=== PATIENT | male | born 1995 | race American Indian/Alaskan Native ===

== ENCOUNTER 2020-10-28 10:13 | Emergency (ER) | payer OTHER ==
[2020-10-28] MEDS ORDERED: FLU VACC QS2020-21(6MOS UP)/PF 60 MCG/0.5 ML SYRINGE IM ONE (11:00)
--- NOTE | 2020-10-28 11:21 | EDM.PDOCBH ---
ED HPI GENERAL MEDICAL PROBLEM - General Chief Complaint: Behavioral/Psych Stated Complaint: [facility] Time Seen by Provider: 10/28/20 11:08 Source of Information: Reports: Patient, RN Notes Reviewed History Limitations: Reports: No Limitations - History of Present Illness INITIAL COMMENTS - FREE TEXT/NARRATIVE: Patient is a 24-year-old male who was brought in to the ED via the [facility] for the evaluation of his anxiety. The patient notes this morning he was experiencing generalized anxiety, both breathing fast, and then developed some numbness to his hands, face and states it was kind of hard to talk after that time. He notes that while being in the ambulance, this helped. Calm him down quite a bit due to prolonged wait times in the ER, he states that he feels even better sitting on the ER cot now, and all of the numbness and tingling seems to have went away. He is not ever experienced anxiety, but he believes this to be a panic attack. He was drinking last night pretty heavily, he denies any sort of drug use that he would have done. Patient denies any other sick- like symptoms, fever/chills, cough/shortness of breath, nausea/vomiting/di arrhea. He does not have a regular care provider. - Related Data Allergies Allergy/AdvReac Type Severity Reaction Status Date / Time No Known Allergies Allergy Verified 10/28/20 10:27 Home Meds: Home Meds LORazepam [Ativan] 1 mg PO TID PRN #12 tab 10/28/20 [Rx] Past Medical History - Infectious Disease History Infectious Disease History: Reports: Novel Coronavirus (Jul 2020) - Past Surgical History Musculoskeletal Surgical History: Reports: Other (See Below) Other Musculoskeletal Surgeries/Procedures:: surgery to left arm Social & Family History - Family History Family Medical History: No Pertinent Family History - Tobacco Use Tobacco Use Status *Q: Never Tobacco User Second Hand Smoke Exposure: No - Caffeine Use Caffeine Use: Reports: Coffee, Energy Drinks, Soda - Alcohol Use Alcohol Use History: Yes Days Per Week of Alcohol Use: 2 Number of Drinks Per Day: 10 Total Drinks Per Week: 20 - Recreational Drug Use Recreational Drug Use: No ED ROS GENERAL - Review of Systems Review Of Systems: Comprehensive ROS is negative, except as noted in HPI. ED EXAM, BEHAVIORAL HEALTH - Physical Exam Exam: See Below Exam Limited By: No Limitations General Appearance: Alert, WD/WN, No Apparent Distress Respiratory/Chest: No Respiratory Distress, Lungs Clear, Normal Breath Sounds, No Accessory Muscle Use, Chest Non-Tender Cardiovascular: Normal Peripheral Pulses, Regular Rate, Rhythm, No Murmur Extremities: Normal Inspection, Normal Range of Motion, Normal Capillary Refill Neurological: Alert, Normal Mood/Affect, Normal Cognition, Normal Reflexes, No Motor/Sensory Deficits, Oriented x 3 Psychiatric: Alert, Normal Affect, Normal Cognition, Normal Mood, Oriented Skin Exam: Warm, Dry, Intact, Normal color, No rash COURSE, BEHAVIORAL HEALTH COMP - Course Vital Signs: Last Vital Signs Temp 97.9 F 10/28/20 10:20 Pulse 103 H 10/28/20 10:20 Resp 24 H 10/28/20 10:20 BP 152/96 H 10/28/20 10:20 Pulse Ox 99 10/28/20 10:20 Orders, Labs, Meds: Active Orders 24 hr Category Date Time Status Influenza Vaccine Charge [RC] .DISCHARGE Care 10/28/20 10:31 Active Laboratory Tests 10/28/20 Range/Units 11:30 Sodium 141 (136-145) mEq/L Potassium 3.4 L (3.5-5.1) mEq/L Chloride 103 (98-107) mEq/L Carbon Dioxide 27 (21-32) mEq/L Anion Gap 14.4 (5-15) BUN 5 L (7-18) mg/dL Creatinine 1.1 (0.7-1.3) mg/dL Est Cr Clr Drug Dosing 101.77 mL/min Estimated GFR (MDRD) > 60 (>60) mL/min BUN/Creatinine Ratio 4.5 L (14-18) Glucose 100 (74-106) mg/dL Calcium 8.2 L (8.5-10.1) mg/dL Total Bilirubin 0.7 (0.2-1.0) mg/dL AST 47 H (15-37) U/L ALT 91 H (16-63) U/L Alkaline Phosphatase 140 H (46-116) U/L Total Protein 7.4 (6.4-8.2) g/dl Albumin 3.8 (3.4-5.0) g/dl Globulin 3.6 gm/dL Albumin/Globulin Ratio 1.1 (1-2) Medications Discontinued Medications Generic Name Dose Route Start Last Admin Trade Name Freq PRN Reason Stop Dose Admin Influenza Virus Vaccine 60 mcg 10/28/20 11:00 Fluzone Quad [id number] Syringe IM 10/28/20 11:01 .ONCE ONE Discharge vs Psych Eval/Treatment:: 10/28/20 11:20 Patient presents to the ED for the evaluation of his anxiety. I do believe he suffered from a panic attack, he states that he is feeling fairly well now. We will check some baseline labs to make sure there is no electrolyte abnormalities attributing this. Will likely discharge home with a small course of Ativan and referral to follow-up with primary care as needed for further anxiety symptoms. 10/28/20 12:29 Labs are unremarkable. Patient be discharged home with general recommendations. Departure - Departure Time of Disposition: 12:30 Disposition: Home, Self-Care 01 Condition: Good Clinical Impression: Panic attack - Discharge Information *PRESCRIPTION DRUG MONITORING PROGRAM REVIEWED*: Yes *COPY OF PRESCRIPTION DRUG MONITORING REPORT IN PATIENT ROCK: No Prescriptions: LORazepam [Ativan] 1 mg PO TID PRN #12 tab PRN Reason: Anxiety Instructions: Panic Attack, [id number] Referrals: PCP,None [Primary Care Provider] - Forms: ED Department Discharge Additional Instructions: You were evaluated at the ER today for your panic attack. Your laboratory evaluation was within normal limits, what you are experiencing was most likely due to anxiety or panic attack. You were given a prescription for Ativan, please use 1 tablet 3 times a day as needed for further anxiety type symptoms. If you do not already have a primary care provider, please call your local clinic to obtain one and talk with them about managing your anxiety for a more long-term solution. Please return to the ER at any time if symptoms change or worsen. Sepsis Event Note (ED) - Evaluation Sepsis Screening Result: No Definite Risk - Focused Exam Vital Signs: Vital Signs Temp Pulse Resp BP Pulse Ox 10/28/20 10:20 97.9 F 103 H 24 H 152/96 H 99 - My Orders Last 24 Hours: My Active Orders 10/28/20 10:31 Influenza Vaccine Charge [RC] .DISCHARGE - Assessment/Plan Last 24 Hours: My Active Orders 10/28/20 10:31 Influenza Vaccine Charge [RC] .DISCHARGE
== END 2020-10-28 12:46 | disposition home or self-care (01) ==
LOC: JD.ED 10:13
DX: F41.0 Panic disorder [episodic paroxysmal anxiety] (principal); Z23 Encounter for immunization
CPT/HCPCS: 36415; 80053; 90686; 99283; 99283-25; G0008